=== PATIENT | female | born 1975 | race Caucasian/White ===

== ENCOUNTER 2017-03-25 12:55 | Outpatient (CLI) | payer BC ==
--- NOTE | 2017-03-25 14:43 | DIAGNOSTIC IMAGING REPORT ---
PROCEDURE: CTA THORAX WITH CONTRAST INDICATION: CHEST PAIN;SOB TECHNIQUE: 80 ml of Isovue 370 was injected intravenously and axial images were obtained of the chest with 3D sagittal and coronal MIP reconstructions. COMPARISON: 01/19/2017 FINDINGS: Interval resolution of bilateral pulmonary emboli. There are no occlusive pulmonary arterial filling defects on the current study. There is beam hardening artifact from the opacified SVC versus trace residual nonocclusive clot within the posterior right upper lobe segmental artery. Pulmonary arteries are of normal caliber. Thoracic aorta is normal caliber. The great vessels demonstrate a normal branching pattern. Heart size is normal. No pericardial effusion. No adenopathy or mediastinal masses. The esophagus is normal in caliber with a small hiatal hernia. The thyroid gland is normal. Moderate patchy bilateral posterior lower lobe parenchymal ground-glass opacities diffusely. Anterior lungs are normally aerated. No dense consolidations. The airway is patent and branches normally. No pleural effusions or pneumothorax. Osseous structures are intact. There is hepatosplenomegaly and moderately significant hepatic hypodensity. The spleen measures 14.6 cm in AP diameter. IMPRESSION: 1. Interval resolution of previously seen bilateral pulmonary emboli. There are no acute occlusive emboli on the current exam. There is a questionable, nonocclusive residual embolus verses beam hardening artifact involving the right upper lobe posterior segmental branch. 2. Mild diffuse posterior bilateral ground-glass opacities, most likely atelectatic change. Interval resolution of parenchymal consolidations. 3. Small hiatal hernia. 4. Hepatosplenomegaly and hepatic steatosis, stable.
== END 2017-03-25 23:00 ==
LOC: CT SRH 12:55
DX: R07.9 Chest pain, unspecified (principal); R06.02 Shortness of breath; R91.8 Other nonspecific abnormal finding of lung field